=== PATIENT | male | born 1995 | race Caucasian/White ===

== ENCOUNTER 2018-03-02 10:46 | Emergency (ER) | payer OTHER ==
[2018-03-02 11:04] VITALS: BP 123/81; PULSE 86; RESP 18; TEMP 98.2
--- NOTE | 2018-03-02 11:35 | ED ---
General Adult HPI - General Chief complaint: Urogenital Stated complaint: male Time Seen by Provider: 03/02/18 11:00 Source: patient, RN notes reviewed Mode of arrival: ambulatory Limitations: no limitations - History of Present Illness Initial comments: This is a 22-year-old male who presents emergency department because he has a small lesion on his penis and states his been there for about 4 months. Patient states 4 months ago started as a pimple and then turn into an abscess and it has yet to go away. Patient states there has been no drainage is no fluctuants and does not feel like there is any mass there. Patient states he's just concerned because it has not completely healed. Patient denies any fever chills. Patient states she's been checked for STDs and these tests were negative. Patient states currently palpating the lesion does not hurt. Patient denies any testicular problems or pain. Patient denies any other lesions in any other spots. - Related Data Allergies Allergy/AdvReac Type Severity Reaction Status Date / Time animal dander Allergy Itching Verified 03/02/18 11:05 Review of Systems ROS Statement: Those systems with pertinent positive or pertinent negative responses have been documented in the HPI. ROS Other: All systems not noted in ROS Statement are negative. Past Medical History Past Medical History: Asthma History of Any Multi-Drug Resistant Organisms: MRSA Past Surgical History: No Surgical Hx Reported Past Psychological History: Anxiety, Depression Smoking Status: Current every day smoker Past Alcohol Use History: None Reported Past Drug Use History: Marijuana General Exam - General Exam Comments Initial Comments: GENERAL Patient is well-developed and well-nourished. Patient is in mild distress. EYES Patient's pupils are equal and round. Extraocular motion is intact SKIN Unremarkable NEURO The patient is alert and oriented 3 PYSCH Patient has normal interpersonal interactions. MUSCULOSKELETAL All 4 times and full range of motion. GENITALIA On the dorsal aspect of the penis there is a very small superficial lesion does not appear to be an ulceration doesn't appear to be fluctuant and there is no mass. The lesion is contained in the skin only but it is so small it is difficult to assess whether it is a healing abscess or whether it is new abrasion. Limitations: no limitations Course Vital Signs 03/02/18 11:01 Temperature 98.2 F Pulse Rate 86 Respiratory 18 Rate Blood Pressure 123/81 O2 Sat by Pulse 100 Oximetry Medical Decision Making - Medical Decision Making Patient states this lesion started as a pimple and then turn into an abscess and now this little red sandra is what has remained over the last 4 months and he is concerned because it is not healing. Disposition Clinical Impression: Penile lesion Disposition: HOME SELF-CARE Condition: Good Instructions: Sexually Transmitted Diseases (ED) Is patient prescribed a controlled substance at d/c from ED?: No Referrals: None,Stated [Primary Care Provider] - 1-2 days Yonny Cordero MD [STAFF PHYSICIAN] - 1-2 days
== END 2018-03-02 11:42 | disposition home or self-care (01) ==
LOC: EC 10:46
DX: N48.89 Other specified disorders of penis (principal); F17.200 Nicotine dependence, unspecified, uncomplicated; Z86.14 Personal history of Methicillin resistant Staphylococcus aureus infection; Z91.048 Other nonmedicinal substance allergy status
CPT/HCPCS: 99283

== ENCOUNTER 2018-05-04 18:20 | Emergency (ER) | payer OTHER ==
--- NOTE | 2018-05-04 18:30 | ED ---
General Adult HPI - General Chief complaint: Nausea/Vomiting/Diarrhea Stated complaint: vomiting Time Seen by Provider: 05/04/18 18:30 Source: patient Mode of arrival: ambulatory Limitations: no limitations - History of Present Illness Initial comments: 23-year-old male with past medical history of asthma presenting today for chief complaint of vomiting x1 day. Patient states that he has been throwing up all day, he cannot count the number of times he has had emesis. Denies hematemesis. Patient states that he walked to the bathroom to vomit, this afternoon he states he passed out, denies chest pain, shortness of breath or dizziness prior. Patient is unsure if he hit his head. Patient states following syncope he developed a dull aching headache. Denies this being the worse headache of his life. Patient admits to feeling warm and having chills this morning. He denies any diarrhea, melena, hematochezia, shorts of breath, dyspnea on exertion, palpitations, neck pain. Patient does admit to left upper quadrant discomfort, denies pain. Patient denies any other areas of abdominal discomfort or pain. Patient states that the vomiting has slowed, however he still remains nauseous. Patient denies any visual changes, diplopia, muscle weakness, paresthesias, sensation deficits, facial asymmetry incontinence,Or any other associated symptoms. Upon arrival patient's vital signs within acceptable limits. Patient is well-appearing there are no signs of acute distress. Remainder of ROS negative, patient denies any recent back pain, numbness or tingling, dysuria or hematuria, constipation, or any other complaints. Pt last BM 6 hours ago, normal. - Related Data Home Medications Medication Instructions Recorded Confirmed Multivitamins, Thera [Multivitamin 1 tab PO DAILY 05/04/18 05/04/18 (formulary)] Previous Rx's Medication Instructions Recorded Ondansetron [Zofran] 4 mg PO Q12HR PRN 3 Days #6 tab 05/04/18 Allergies Allergy/AdvReac Type Severity Reaction Status Date / Time animal dander Allergy Itching Verified 05/04/18 19:40 Review of Systems ROS Statement: Those systems with pertinent positive or pertinent negative responses have been documented in the HPI. ROS Other: All systems not noted in ROS Statement are negative. Constitutional: Reports: chills. Denies: fever, night sweats ENT: Denies: ear pain, throat pain Respiratory: Denies: cough, dyspnea, wheezes, hemoptysis, stridor Cardiovascular: Denies: chest pain, palpitations, dyspnea on exertion, orthopnea Endocrine: Denies: fatigue Gastrointestinal: Reports: abdominal pain (LUQ discomfort states not a pain), nausea, vomiting. Denies: diarrhea, constipation, hematemesis, melena, hematochezia Genitourinary: Denies: urgency, dysuria, frequency, hematuria, discharge Musculoskeletal: Denies: back pain Skin: Denies: rash, lesions Neurological: Reports: headache. Denies: weakness, numbness, paresthesias, confusion, abnormal gait, vertigo Past Medical History Past Medical History: Asthma History of Any Multi-Drug Resistant Organisms: MRSA Past Surgical History: No Surgical Hx Reported Past Psychological History: Anxiety, Depression Smoking Status: Current every day smoker Past Alcohol Use History: None Reported Past Drug Use History: Marijuana General Exam - General Exam Comments Initial Comments: General: The patient is awake and alert, in no distress, and does not appear acutely ill. Eye: Pupils are equal, round and reactive to light, extra-ocular movements are intact. No nystagmus. There is normal conjunctiva bilaterally. No signs of icterus. Ears, nose, mouth and throat: There are moist mucous membranes and no oral lesions. Neck: The neck is supple, there is no tenderness or JVD. Cardiovascular: There is a regular rate and rhythm. No murmur, rub or gallop is appreciated. Respiratory: Lungs are clear to auscultation, respirations are non-labored, breath sounds are equal. No wheezes, stridor, rales, or rhonchi. Gastrointestinal: No noted diaphoresis, jaundice, pallor, protecting postures or squirming. Symmetrical pigmentation of abdomen without signs of inflammation, scars, or striae. Umbilicus mildline, inverted without swelling. No dilated veins. Abdomen contour scaphoid, no noted abdominal distention. No visible masses. No peristalsis, aortic pulsations, or ventral hernia. Bowel sounds audible in all 4 quadrants, unremarkable. No friction rubs or venous hums. No epigastic, hepatic or abdominal bruits. No tenderness to light or deep palpation. Liver edge, not palpable. Spleen edge, right and left kidney not palpable. Superior bladder margin non-tender. Special Testing: Negative Fortuna, Rovsing, McBurney, Mariana, cutaneous hyperesthesia. Iliopsoas and obturator tests negative bilaterally. Negative Heel Jar test. No CVA tenderness. Digital rectal exam deferred. Negative france turners or cullens sign Musculoskeletal: Normal ROM, no tenderness. Strength 5/5. Sensation intact. Pulses equal bilaterally 2+. Neurological: A&O x 3. CN II-XII intact, There are no obvious motor or sensory deficits. Coordination appears grossly intact. Speech is normal. Skin: Skin is warm and dry and no rashes or lesions are noted. No LE edema Psychiatric: Cooperative, appropriate mood & affect, normal judgment. Limitations: no limitations Course Vital Signs 05/04/18 05/04/18 18:25 20:22 Temperature 97.4 F L 97.2 F L Pulse Rate 57 L 78 Respiratory 20 16 Rate Blood Pressure 110/71 113/60 O2 Sat by Pulse 98 96 Oximetry - Reevaluation(s) Reevaluation #1: patient denies nausea, abdominal exam remains benign. Patient tolerated by mouth intake. Pt appears well. 05/05/18 EKG Findings - EKG Comments: EKG Findings:: A 12-lead EKG was performed and shows the following: Rate is 52bpm, and rhythm is normal sinus. There are normal QRS complexes and normal R- wave progression. Non specific ST abnormalities, probably normal. ST segments have no elevation or depression, and ID segments appear normal. Medical Decision Making - Medical Decision Making Patient with complaint of vomiting, syncopal episode. Patient dry and exam. Patient given Zofran for nausea, this alleviated pt nausea. Abdominal exam benign. Last BM normal and today. Patient given 1 L bolus of IV fluid for rehydration. Given history of fall with unknown head injury CT brain and C- spine without contrast obtained, negative for acute process. EKG no acute findings. No focal neurological deficits on exam. Cardiac exam unremarkable. patient had no more episodes of vomiting, patient passed by mouth challenge he was eating Jell-O and requesting something to drink. Patient states he is ready for discharge. At this time feel patient's syncope most likely related to hypovolemia from vomiting. I discussed case with Dr. John who agreed with impression and plan. Pt discharged with primary care f/u in the next 1-2 days. Patient agreed with plan. Return parameters discussed at length patient who verbalized understanding. Patient discharged in stable condition - Lab Data Result diagrams: 05/04/18 18:42 05/04/18 18:42 Lab Results 05/04/18 05/04/18 Range/Units 18:42 18:42 WBC 10.0 (3.8-10.6) k/uL RBC 4.82 (4.30-5.90) m/uL Hgb 15.8 (13.0-17.5) gm/dL Hct 44.5 (39.0-53.0) % MCV 92.2 (80.0-100.0) fL MCH 32.8 (25.0-35.0) pg MCHC 35.6 (31.0-37.0) g/dL RDW 12.4 (11.5-15.5) % Plt Count 234 (150-450) k/uL Neutrophils % 84 % Lymphocytes % 10 % Monocytes % 4 % Eosinophils % 1 % Basophils % 0 % Neutrophils # 8.4 H (1.3-7.7) k/uL Lymphocytes # 1.0 (1.0-4.8) k/uL Monocytes # 0.4 (0-1.0) k/uL Eosinophils # 0.1 (0-0.7) k/uL Basophils # 0.0 (0-0.2) k/uL Sodium 143 (137-145) mmol/L Potassium 3.8 (3.5-5.1) mmol/L Chloride 108 H (98-107) mmol/L Carbon Dioxide 25 (22-30) mmol/L Anion Gap 10 mmol/L BUN 10 (9-20) mg/dL Creatinine 0.75 (0.66-1.25) mg/dL Est GFR (CKD-EPI)AfAm >90 (>60 ml/min/1.73 sqM) Est GFR (CKD-EPI)NonAf >90 (>60 ml/min/1.73 sqM) Glucose 95 (74-99) mg/dL Calcium 9.5 (8.4-10.2) mg/dL Total Bilirubin 0.4 (0.2-1.3) mg/dL AST 32 (17-59) U/L ALT 18 L (21-72) U/L Alkaline Phosphatase 62 (38-126) U/L Total Protein 7.0 (6.3-8.2) g/dL Albumin 4.4 (3.5-5.0) g/dL Lipase 151 (23-300) U/L Disposition Clinical Impression: Nausea & vomiting, Syncope Disposition: HOME SELF-CARE Condition: Good Instructions: Syncope (ED), Acute Nausea and Vomiting (ED) Additional Instructions: Please use medication as discussed. Please follow-up with family doctor in the next 2 days. Please return to emergency room if the symptoms increase or worsen or for any other concerns. Please increase fluid intake. Prescriptions: Ondansetron [Zofran] 4 mg PO Q12HR PRN 3 Days #6 tab PRN Reason: Nausea Is patient prescribed a controlled substance at d/c from ED?: No Referrals: Denzel Ely DO [Primary Care Provider] - 1-2 days Time of Disposition: 20:01
[2018-05-04] MEDS ORDERED: ONDANSETRON 4 MG/2 ML VIAL IVP STA (18:43)
[2018-05-04] MEDS ORDERED: SODIUM CHLORIDE 0.9% 1,000 ML IV STA (18:43)
[2018-05-04 19:14] LABS: Basophils % (A) 0 %; Eosinophils # (A) 0.1 k/uL (0-0.7); Eosinophils % (A) 1 %; HCT 44.5 % (39.0-53.0); HGB 15.8 gm/dL (13.0-17.5); Lymphocytes % (A) 10 %; MCH 32.8 pg (25.0-35.0); MCHC 35.6 g/dL (31.0-37.0); MCV 92.2 fL (80.0-100.0); Mean Platelet Volume 7.1; Monocytes # (A) 0.4 k/uL (0-1.0); Monocytes % (A) 4 %; Neutrophils # (A) 8.4 k/uL (1.3-7.7); Neutrophils % (A) 84 %; Platelet Count 234 k/uL (150-450); RBC 4.82 m/uL (4.30-5.90); RDW 12.4 % (11.5-15.5)
[2018-05-04 19:20] LABS: ALT 18 U/L (21-72); AST 32 U/L (17-59); Albumin 4.4 g/dL (3.5-5.0); Alkaline Phosphatase 62 U/L (38-126); Anion Gap 10 mmol/L; Blood Urea Nitrogen 10 mg/dL (9-20); Calcium 9.5 mg/dL (8.4-10.2); Carbon Dioxide 25 mmol/L (22-30); Chloride 108 mmol/L (98-107); Glucose 95 mg/dL (74-99); Lipase 151 U/L (23-300); Potassium 3.8 mmol/L (3.5-5.1); Sodium 143 mmol/L (137-145); Total Bilirubin 0.4 mg/dL (0.2-1.3)
--- NOTE | 2018-05-04 19:24 | CT ---
EXAMINATION TYPE: CT brain guerrero sethi con DATE OF EXAM: 05/04/2018 COMPARISON: None HISTORY: vomiting, passing out CT DLP: 1335.4 mGycm Automated exposure control for dose reduction was used. TECHNIQUE: CT scan of the head and cervical spine are performed without contrast. FINDINGS: Ventricles of normal size. There is no mass effect nor midline shift. There is no sign of intracranial hemorrhage. The calvarium is intact. Cervical vertebra have normal spacing and alignment. The posterior elements are intact. Facet joints appear normal. The skull base appears intact. IMPRESSION: Negative CT scan of the brain. Negative CT scan cervical spine.
--- NOTE | 2018-05-04 19:43 | XR ---
EXAMINATION TYPE: XR chest 2V DATE OF EXAM: 05/04/2018 COMPARISON: NONE HISTORY: Pain after falling TECHNIQUE: Frontal and lateral views of the chest are obtained. FINDINGS: Heart and mediastinum are normal. Lungs are clear. Diaphragm is normal. Bony thorax appear s normal. There is no sign of a pneumothorax. IMPRESSION: Normal chest
[2018-05-04 20:24] VITALS: BP 113/60; PULSE 78; RESP 16; TEMP 97.2
== END 2018-05-04 20:22 | disposition home or self-care (01) ==
LOC: EC 18:20
DX: R55 Syncope and collapse (principal); R11.2 Nausea with vomiting, unspecified; R19.7 Diarrhea, unspecified; R68.83 Chills (without fever); F17.200 Nicotine dependence, unspecified, uncomplicated; Z86.14 Personal history of Methicillin resistant Staphylococcus aureus infection; Z91.048 Other nonmedicinal substance allergy status; Z91.81 History of falling
CPT/HCPCS: 99284; 96374; 96361; 36415; 93005; 80053; 83690; 85025; 71046; 72125; 70450; J2405

== ENCOUNTER 2020-09-09 08:02 | Emergency (ER) | payer OTHER ==
[2020-09-09 08:08] VITALS: BP 123/78; PULSE 89; RESP 18; TEMP 98
--- NOTE | 2020-09-09 08:23 | ED ---
General Adult HPI - General Chief complaint: Urogenital Stated complaint: Male UG Time Seen by Provider: 09/09/20 08:08 Source: patient Mode of arrival: ambulatory Limitations: no limitations - History of Present Illness Initial comments: Dictation was produced using [email or web address] dictation software. please excuse any grammatical, word or spelling errors. This patient was cared for during a federal and state declared state of emergency secondary to Covid 19 Chief Complaint: 25-year-old male presents with 3 days of left testicular pain History of Present Illness: Patient is a 25-year-old male who presents today with left testicular pain. States that his symptoms began on Wednesday. He states that his left testicle hurts. He states that sometimes the pain radiates to his abdomen. Patient denies any dysuria or urinary symptoms. States he has not been sexually active for 6 months. Patient had some mild nausea. Denies any history of testicular issues in the past. States that his symptoms are intermittent and episodic. He still has some pain in his left testicle. Feels like his left testicle is swollen. The ROS documented in this emergency department record has been reviewed and confirmed by me. Those systems with pertinent positive or negative responses have been documented in the HPI. All other systems are other negative and/or noncontributory. PHYSICAL EXAM: General Impression: Alert and oriented x3, not in acute distress HEENT: Normocephalic atraumatic, extra-ocular movements intact, pupils equal and reactive to light bilaterally, mucous membranes moist. Cardiovascular: Heart regular rate and rhythm Chest: Able to complete full sentences, no retractions, no tachypnea Abdomen: abdomen soft, non-tender, non-distended, no organomegaly Musculoskeletal: Pulses present and equal in all extremities, no peripheral edema Motor: no focal deficits noted Neurological: CN II-XII grossly intact, no focal motor or sensory deficits noted Skin: Intact with no visualized rashes Psych: Normal affect and mood : Negative Prehn sign, there is a horizontal lie of the left testicle compared to the right. Slight tenderness to palpation over the posterior inferior pole of the left testicle ED course: 25-year-old male presents with left testicular pain for 3 days. As upon arrival are within acceptable limits. Ultrasound the scrotum shows small hydroceles noted of both testicles. Otherwise there is good flow to both testicles no evidence of testicular torsion, no signs of epididymitis. Urinalysis unremarkable. Urine sample was sent for STD testing. Patient given outpatient follow-up with urology Dr. Ha. Case was briefly discussed with Dr. Drew with no further recommendations. Patient told that it important that he return to the emergency department if he has any worsening symptoms. Told that he does appear to have horizontal lie of the left testicle which could predispose him to testicular torsion. Patient understandable and agreeable to plan. - Related Data Home Medications Medication Instructions Recorded Confirmed Multivitamins, Thera [Multivitamin 1 tab PO DAILY 05/04/18 09/09/20 (formulary)] Albuterol Sulfate [Ventolin HFA] 2 puff INHALATION RT-QID PRN 09/09/20 09/09/20 Beclomethasone Dipropionate [Qvar 1 puff INHALATION RT-BID 09/09/20 09/09/20 40 mcg Redihaler] Allergies Allergy/AdvReac Type Severity Reaction Status Date / Time animal dander Allergy Itching Verified 09/09/20 08:27 Review of Systems ROS Statement: Those systems with pertinent positive or pertinent negative responses have been documented in the HPI. ROS Other: All systems not noted in ROS Statement are negative. Past Medical History Past Medical History: Asthma History of Any Multi-Drug Resistant Organisms: MRSA Date of last positivie culture/infection: foot MDRO Source:: 2006 Past Surgical History: No Surgical Hx Reported Past Psychological History: Anxiety, Depression Smoking Status: Current every day smoker Past Alcohol Use History: None Reported Past Drug Use History: Marijuana General Exam Limitations: no limitations Course Vital Signs 09/09/20 08:04 Temperature 98 F Pulse Rate 89 Respiratory 18 Rate Blood Pressure 123/78 O2 Sat by Pulse 100 Oximetry Medical Decision Making - Lab Data Lab Results 09/09/20 Range/Units 09:00 Urine Color Yellow Urine Appearance Clear (Clear) Urine pH 6.0 (5.0-8.0) Ur Specific [place] 1.029 (1.001-1.035) Urine Protein Trace H (Negative) Urine Glucose (UA) Negative (Negative) Urine Ketones Negative (Negative) Urine Blood Negative (Negative) Urine Nitrite Negative (Negative) Urine Bilirubin Negative (Negative) Urine Urobilinogen 2.0 (<2.0) mg/dL Ur Leukocyte Esterase Negative (Negative) Disposition Clinical Impression: Testicular pain Disposition: HOME SELF-CARE Condition: Good Instructions (If sedation given, give patient instructions): Testicle Pain (ED) Additional Instructions: Seek medical attention immediately if he have recurrence of testicular pain. There is concern that you have a predisposition for testicular torsion Is patient prescribed a controlled substance at d/c from ED?: No Referrals: Silvio Dela Cruz MD [STAFF PHYSICIAN] - 1-2 days Time of Disposition: 10:35
--- NOTE | 2020-09-09 09:19 | US ---
EXAMINATION TYPE: US scrotum with doppler. Grayscale and color Doppler Duplex imaging performed of brittani win scrotum. DATE OF EXAM: 09/09/2020 COMPARISON: NONE CLINICAL HISTORY: left testicular pain. EXAM MEASUREMENTS: TESTICLES: Right Testicle: 4.3 x 2.3 x 3.4 cm Left Testicle: 4.3 x 2.3 x 3.2 cm EPIDIDYMIS HEAD: Right Epididymis: 1.1 x 0.8 cm Left Epididymis: 0.9 x 0.9 cm Doppler performed to assess for testicular vascularity; good bilateral color flow and waveforms are s een. There is no evidence of testicular torsion. No intra or extratesticular mass appreciated. Presence of hydroceles: small amount of fluid around both testicles. Presence of varicoceles: none appreciated, Valsalva maneuver was utilized with scrotal sac imaging , no movement seen with valsalva to indicate hernia. IMPRESSION: Small hydroceles noted. Otherwise unremarkable study.
[2020-09-09 09:34] LABS: Appearance,Urine Clear (Clear); Bilirubin,Urine Negative (Negative); Blood,Urine Negative (Negative); Color,Urine Yellow; Glucose,Urine (UA) Negative (Negative); Ketones,Urine Negative (Negative); Leukocyte Esterase,Urine Negative (Negative); Nitrite,Urine Negative (Negative); Protein,Urine Trace (Negative); Specific Gravity,Urine 1.029 (1.001-1.035)
[2020-09-10 13:06] LABS: C. trachomatis,PCR Negative (Neg,Equiv); Chlamydia trachomatis Source Urine; N. gonorrhoeae,PCR Negative (Neg,Equiv); Neisseria Source Urine
== END 2020-09-09 10:45 | disposition home or self-care (01) ==
LOC: EC 08:02
DX: N50.812 Left testicular pain (principal); N43.3 Hydrocele, unspecified; J45.909 Unspecified asthma, uncomplicated; F17.200 Nicotine dependence, unspecified, uncomplicated; Z79.51 Long term (current) use of inhaled steroids; Z91.048 Other nonmedicinal substance allergy status
CPT/HCPCS: 76870; 81003; 87491; 87591; 93975; 99284

== ENCOUNTER 2020-09-18 08:39 | Emergency (ER) | payer OTHER ==
[2020-09-18 08:43] VITALS: PULSE 78
[2020-09-18] MEDS ORDERED: ALBUTEROL NEBULIZED 2.5 MG/3 ML INHALATION STA (08:51)
[2020-09-18] MEDS ORDERED: methylPREDNISolone SOD SUCCI 125 MG/2 ML VIAL IV STA (08:51)
[2020-09-18 09:25] LABS: Basophils % (A) 1 %; Eosinophils # (A) 0.2 k/uL (0-0.7); Eosinophils % (A) 5 %; HCT 46.8 % (39.0-53.0); HGB 15.9 gm/dL (13.0-17.5); Lymphocytes # (A) 1.7 k/uL (1.0-4.8); Lymphocytes % (A) 39 %; MCH 31.1 pg (25.0-35.0); MCHC 33.9 g/dL (31.0-37.0); Mean Platelet Volume 7.4; Monocytes # (A) 0.4 k/uL (0-1.0); Monocytes % (A) 9 %; Neutrophils # (A) 1.9 k/uL (1.3-7.7); Neutrophils % (A) 44 %; Platelet Count 188 k/uL (150-450); RBC 5.09 m/uL (4.30-5.90); RDW 12.7 % (11.5-15.5); WBC 4.4 k/uL (3.8-10.6)
[2020-09-18 09:32] VITALS: RESP 16
--- NOTE | 2020-09-18 09:33 | XR ---
EXAMINATION TYPE: XR chest 2V DATE OF EXAM: 09/18/2020 COMPARISON: Chest x-ray 05/04/2018 HISTORY: Difficulty breathing, hemoptysis TECHNIQUE: Frontal and lateral views of the chest are obtained. FINDINGS: There is no focal air space opacity, pleural effusion, or pneumothorax seen. The cardiac silhouette size is within normal limits. Suspect bronchial wall thickening is present. The osseous s tructures are intact. IMPRESSION: Correlate for possible bronchitis, reactive airways disease
[2020-09-18 09:43] LABS: ALT 16 U/L (4-49); AST 27 U/L (17-59); African American GFR (CKD) >90 (>60 ml/min/1.73 sqM); Albumin 4.4 g/dL (3.5-5.0); Alkaline Phosphatase 65 U/L (38-126); Anion Gap 8 mmol/L; Blood Urea Nitrogen 14 mg/dL (9-20); Calcium 9.5 mg/dL (8.4-10.2); Carbon Dioxide 29 mmol/L (22-30); Chloride 104 mmol/L (98-107); Glucose 99 mg/dL (74-99); Non-African American GFR(CKD) >90 (>60 ml/min/1.73 sqM); Sodium 141 mmol/L (137-145); Total Bilirubin 0.4 mg/dL (0.2-1.3); Total Protein 7.1 g/dL (6.3-8.2)
[2020-09-18 09:45] LABS: D-Dimer 0.57 mg/L FEU (<0.60); INR 0.9 (<1.2); Partial Thromboplastin Time 24.8 sec (22.0-30.0); Prothrombin Time 9.8 sec (9.0-12.0)
[2020-09-18] MEDS ORDERED: ALBUTEROL HFA INHALER INHALATION STA (10:05)
--- NOTE | 2020-09-18 10:30 | CT ---
EXAMINATION TYPE: CT chest angio for PE DATE OF EXAM: 09/18/2020 COMPARISON: Chest x-ray earlier today. HISTORY: hemoptysis, cough, Covid CT DLP: 330.1 mGycm Automated exposure control for dose reduction was used. CONTRAST: CT Chest for pulmonary embolism performed with with IV Contrast, patient injected with 100 mL of Isov ue 370. FINDINGS: LUNGS: The lungs are grossly clear, there is no concerning parenchymal mass or nodule identified. N o suspicious focal ground glass opacity or consolidation. Mild linear scarring or atelectasis lateral right lung base coronal image 69. There is no pleural effusion or pneumothorax seen. The tracheobro nchial tree is patent. MEDIASTINUM: There is satisfactory enhancement of the pulmonary artery and its branches, there is no CT evidence for pulmonary embolism. There are no greater than 1 cm hilar or mediastinal lymph nodes. No cardiomegaly or pericardial effusion is seen. OTHER: No additional significant abnormality is seen. IMPRESSION: No CT evidence for acute pulmonary embolism. No suspicious acute pulmonary process.
--- NOTE | 2020-09-18 10:36 | ED ---
General Adult HPI - General Chief complaint: Shortness of Breath Stated complaint: SOB, Coughed up blood Time Seen by Provider: 09/18/20 08:50 Source: patient Mode of arrival: ambulatory Limitations: no limitations - History of Present Illness Initial comments: 25-year-old male presents emergency department today for chief complaint of coughing up blood. Patient states he's had a cough and some increased redness of breath the past 2 days. He states he coughed so hard today he notes he coughed up blood. Patient states he has occasional chest pains while coughing. He denies any sharp consistent pains leg swelling he denies any history of DVT pulmonary elbows him. He denies any recent surgeries or immobilization. Patient denies any history of active cancer. Patient is a jaw pain diaphoresis. He states he does have asthma, and he has uses a rescue inhaler.. Patient denies any fevers or concern for covid. Patient denies additional complaints. Upon arrival he appears - Related Data Home Medications Medication Instructions Recorded Confirmed Multivitamins, Thera [Multivitamin 1 tab PO DAILY 05/04/18 09/09/20 (formulary)] Albuterol Sulfate [Ventolin HFA] 2 puff INHALATION RT-QID PRN 09/09/20 09/09/20 Beclomethasone Dipropionate [Qvar 1 puff INHALATION RT-BID 09/09/20 09/09/20 40 mcg Redihaler] Allergies Allergy/AdvReac Type Severity Reaction Status Date / Time animal dander Allergy Itching Verified 09/09/20 08:27 mold Allergy Itching Verified 09/18/20 08:43 Review of Systems ROS Statement: Those systems with pertinent positive or pertinent negative responses have been documented in the HPI. ROS Other: All systems not noted in ROS Statement are negative. Past Medical History Past Medical History: Asthma History of Any Multi-Drug Resistant Organisms: MRSA Date of last positivie culture/infection: foot MDRO Source:: 2006 Past Surgical History: No Surgical Hx Reported Past Psychological History: Anxiety, Depression Smoking Status: Current every day smoker Past Alcohol Use History: None Reported Past Drug Use History: Marijuana General Exam - General Exam Comments Initial Comments: General: The patient is awake and alert, in no distress, and does not appear acutely ill. Eye: +3 mm pupils are equal, round and reactive to light, extra-ocular movements are intact. No nystagmus. There is normal conjunctiva bilaterally. No signs of icterus. Ears, nose, mouth and throat: There are moist mucous membranes and no oral lesions. Neck: The neck is supple, there is no tenderness or JVD. Cardiovascular: There is a regular rate and rhythm. No murmur, rub or gallop is appreciated. Respiratory: Lungs are clear to auscultation, respirations are non-labored, breath sounds are equal. No wheezes, stridor, rales, or rhonchi. Gastrointestinal: Soft, non-distended, non-tender abdomen without masses or organomegaly noted. There is no rebound or guarding present. Musculoskeletal: Normal ROM, no tenderness. Strength 5/5. Sensation intact. Radial and DP pulses equal bilaterally 2+. Neurological: A&O x 3. CN II-XII intact grossly, There are no obvious motor or sensory deficits. Coordination appears grossly intact. Speech is normal. Skin: Skin is warm and dry and no rashes or lesions are noted. no LE edema or calf pain. Psychiatric: Cooperative, appropriate mood & affect, normal judgment. Limitations: no limitations Course Vital Signs 09/18/20 09/18/20 09/18/20 08:41 09:31 10:52 Temperature 97.5 F L 98.3 F Pulse Rate 78 78 Respiratory 19 16 16 Rate Blood Pressure 132/85 126/63 O2 Sat by Pulse 100 98 Oximetry EKG Findings - EKG Comments: EKG Findings:: Ventricular rate 70 bpm, NV interval 162 ms, QRS duration 96 pulse seconds, QT/QTc is 360/397 ms. This is normal sinus there is no ST elev ation or depression appreciated. Medical Decision Making - Medical Decision Making EKG stable. Labs stable. dimer > 0.50. covid +. CTA (-) PE. patient has no pneumonia. lungs clear. decreased dyspnea with inhaler. patient appears well nontoxic and at this time stable for discharge with pcp f/u. return for worsening symptoms. - Lab Data Result diagrams: 09/18/20 09:09 09/18/20 09:09 Lab Results 09/18/20 09/18/20 09/18/20 Range/Units 09:09 09:09 09:09 WBC 4.4 (3.8-10.6) k/uL RBC 5.09 (4.30-5.90) m/uL Hgb 15.9 (13.0-17.5) gm/dL Hct 46.8 (39.0-53.0) % MCV 92.0 (80.0-100.0) fL MCH 31.1 (25.0-35.0) pg MCHC 33.9 (31.0-37.0) g/dL RDW 12.7 (11.5-15.5) % Plt Count 188 (150-450) k/uL MPV 7.4 Neutrophils % 44 % Lymphocytes % 39 % Monocytes % 9 % Eosinophils % 5 % Basophils % 1 % Neutrophils # 1.9 (1.3-7.7) k/uL Lymphocytes # 1.7 (1.0-4.8) k/uL Monocytes # 0.4 (0-1.0) k/uL Eosinophils # 0.2 (0-0.7) k/uL Basophils # 0.0 (0-0.2) k/uL PT 9.8 (9.0-12.0) sec INR 0.9 (<1.2) APTT 24.8 (22.0-30.0) sec D-Dimer 0.57 (<0.60) mg/L FEU Sodium 141 (137-145) mmol/L Potassium 4.0 (3.5-5.1) mmol/L Chloride 104 (98-107) mmol/L Carbon Dioxide 29 (22-30) mmol/L Anion Gap 8 mmol/L BUN 14 (9-20) mg/dL Creatinine 0.81 (0.66-1.25) mg/dL Est GFR (CKD-EPI)AfAm >90 (>60 ml/min/1.73 sqM) Est GFR (CKD-EPI)NonAf >90 (>60 ml/min/1.73 sqM) Glucose 99 (74-99) mg/dL Plasma Lactic Acid Rupesh (0.7-2.0) mmol/L Calcium 9.5 (8.4-10.2) mg/dL Total Bilirubin 0.4 (0.2-1.3) mg/dL AST 27 (17-59) U/L ALT 16 (4-49) U/L Alkaline Phosphatase 65 (38-126) U/L Troponin I (0.000-0.034) ng/mL NT-Pro-B Natriuret Pep pg/mL Total Protein 7.1 (6.3-8.2) g/dL Albumin 4.4 (3.5-5.0) g/dL Coronavirus (PCR) (Not Detectd) 09/18/20 09/18/20 09/18/20 Range/Units 09:09 09:09 09:09 WBC (3.8-10.6) k/uL RBC (4.30-5.90) m/uL Hgb (13.0-17.5) gm/dL Hct (39.0-53.0) % MCV (80.0-100.0) fL MCH (25.0-35.0) pg MCHC (31.0-37.0) g/dL RDW (11.5-15.5) % Plt Count (150-450) k/uL MPV Neutrophils % % Lymphocytes % % Monocytes % % Eosinophils % % Basophils % % Neutrophils # (1.3-7.7) k/uL Lymphocytes # (1.0-4.8) k/uL Monocytes # (0-1.0) k/uL Eosinophils # (0-0.7) k/uL Basophils # (0-0.2) k/uL PT (9.0-12.0) sec INR (<1.2) APTT (22.0-30.0) sec D-Dimer (<0.60) mg/L FEU Sodium (137-145) mmol/L Potassium (3.5-5.1) mmol/L Chloride (98-107) mmol/L Carbon Dioxide (22-30) mmol/L Anion Gap mmol/L BUN (9-20) mg/dL Creatinine (0.66-1.25) mg/dL Est GFR (CKD-EPI)AfAm (>60 ml/min/1.73 sqM) Est GFR (CKD-EPI)NonAf (>60 ml/min/1.73 sqM) Glucose (74-99) mg/dL Plasma Lactic Acid Rupesh 1.0 (0.7-2.0) mmol/L Calcium (8.4-10.2) mg/dL Total Bilirubin (0.2-1.3) mg/dL AST (17-59) U/L ALT (4-49) U/L Alkaline Phosphatase (38-126) U/L Troponin I <0.012 (0.000-0.034) ng/mL NT-Pro-B Natriuret Pep <11 pg/mL Total Protein (6.3-8.2) g/dL Albumin (3.5-5.0) g/dL Coronavirus (PCR) (Not Detectd) 09/18/20 Range/Units 09:09 WBC (3.8-10.6) k/uL RBC (4.30-5.90) m/uL Hgb (13.0-17.5) gm/dL Hct (39.0-53.0) % MCV (80.0-100.0) fL MCH (25.0-35.0) pg MCHC (31.0-37.0) g/dL RDW (11.5-15.5) % Plt Count (150-450) k/uL MPV Neutrophils % % Lymphocytes % % Monocytes % % Eosinophils % % Basophils % % Neutrophils # (1.3-7.7) k/uL Lymphocytes # (1.0-4.8) k/uL Monocytes # (0-1.0) k/uL Eosinophils # (0-0.7) k/uL Basophils # (0-0.2) k/uL PT (9.0-12.0) sec INR (<1.2) APTT (22.0-30.0) sec D-Dimer (<0.60) mg/L FEU Sodium (137-145) mmol/L Potassium (3.5-5.1) mmol/L Chloride (98-107) mmol/L Carbon Dioxide (22-30) mmol/L Anion Gap mmol/L BUN (9-20) mg/dL Creatinine (0.66-1.25) mg/dL Est GFR (CKD-EPI)AfAm (>60 ml/min/1.73 sqM) Est GFR (CKD-EPI)NonAf (>60 ml/min/1.73 sqM) Glucose (74-99) mg/dL Plasma Lactic Acid Rupesh (0.7-2.0) mmol/L Calcium (8.4-10.2) mg/dL Total Bilirubin (0.2-1.3) mg/dL AST (17-59) U/L ALT (4-49) U/L Alkaline Phosphatase (38-126) U/L Troponin I (0.000-0.034) ng/mL NT-Pro-B Natriuret Pep pg/mL Total Protein (6.3-8.2) g/dL Albumin (3.5-5.0) g/dL Coronavirus (PCR) Detected A (Not Detectd) Disposition Clinical Impression: Dyspnea, COVID-19, Hemoptysis, Cough Disposition: HOME SELF-CARE Condition: Good Instructions (If sedation given, give patient instructions): Coronavirus Disease 2019 (COVID-19) Additional Instructions: Please use medication as discussed. Please follow-up with family doctor in the next 2 days. Please return to emergency room if the symptoms increase or worsen or for any other concerns. Is patient prescribed a controlled substance at d/c from ED?: No Referrals: Denzel Ely DO [Primary Care Provider] - 1-2 days Time of Disposition: 10:36
[2020-09-18 10:53] VITALS: BP 126/63; TEMP 98.3
== END 2020-09-18 10:52 | disposition home or self-care (01) ==
LOC: EC 08:39
DX: U07.1 COVID-19 (principal); R04.2 Hemoptysis; J45.909 Unspecified asthma, uncomplicated; F17.200 Nicotine dependence, unspecified, uncomplicated; Z79.51 Long term (current) use of inhaled steroids; Z91.048 Other nonmedicinal substance allergy status; Z91.018 Allergy to other foods
CPT/HCPCS: 36415; 94640; 93005; 85379; 83880; 80053; 83605; 84484; 85025; 85610; 85730; 87635; 71046; 71275; 99285; 96374; J2930; Q9967

== ENCOUNTER 2022-08-18 09:32 | Day surgery (SDC) | payer BC, OTHER ==
[2022-08-13 15:16] VITALS: BMI 26.0
[~2022-08-18 09:32] MED LIST: LACTATED RINGERS 1,000 ML IV SCH; LIDOCAINE 1% (10MG/ML) FOR IV START INTRADERMA PRN
[2022-08-18 10:54] VITALS: RESP 18; TEMP 97.3
[2022-08-18] MEDS ORDERED: LIDOCAINE 2% INJ 20 MG/ML (2 ML VIAL) ONE (11:43)
[2022-08-18] MEDS ORDERED: PROPOFOL 10 MG/ML 20 ML VIAL IV ONE (11:43)
--- NOTE | 2022-08-18 12:01 | P.PCN ---
Date of Procedure: 08/18/22 Procedure(s) Performed: BRIEF HISTORY: Patient is a 27-year-old pleasant white male scheduled for an elective colonoscopy as a part of evaluation of right-sided abdominal pain, constipation and intermittent rectal bleeding for the last 6 weeks duration. PROCEDURE PERFORMED: Colonoscopy. PREOPERATIVE DIAGNOSIS: Right-sided abdominal pain and rectal bleeding. IV sedation per Anesthesia. PROCEDURE: After informed consent was obtained, the patient, was brought into the endoscopy unit. IV sedation was administered by Anesthesia under continuous monitoring. Digital rectal examination was normal. Initially the Olympus CF-160 flexible video colonoscope was then inserted in the rectum, gradually advanced into the cecum without any difficulty. Careful examination was performed as the scope was gradually being withdrawn. Ileocecal valve and the appendiceal orifice were visualized and appeared normal. Prep was excellent. Mucosa of the cecum, ascending colon, transverse colon, descending colon, sigmoid colon, and rectum appeared normal. Retroflexion was performed in the rectum and no lesions were seen. The patient tolerated the procedure well. IMPRESSION: Normal-appearing colon from rectum to cecum with no evidence of colorectal neoplasia . RECOMMENDATIONS: Findings of this examination were discussed with the patient as well as his family. He was advised to be a high-fiber diet and fiber supplements a regular basis.
[2022-08-18 12:22] VITALS: BP 111/66; PULSE 67
== END 2022-08-18 13:05 | disposition home or self-care (01) ==
LOC: ORWHC2ENDO 09:32
PROVIDERS: ATTEND Internal Medicine Gastroenterology
DX: K62.5 Hemorrhage of anus and rectum (principal); J45.909 Unspecified asthma, uncomplicated; F17.200 Nicotine dependence, unspecified, uncomplicated; F12.90 Cannabis use, unspecified, uncomplicated; Z79.899 Other long term (current) drug therapy
CPT/HCPCS: 45378; J2704; J2001

== ENCOUNTER → 2022-09-23 | Outpatient (CLI) | payer BC ==
--- NOTE | 2022-09-23 12:57 | CT ---
EXAMINATION TYPE: CT abdomen pelvis w con CT DLP: 1347 mGycm, Automated exposure control for dose reduction was used. DATE OF EXAM: 09/23/2022 12:40 PM COMPARISON: CTA chest 09/18/2020 CLINICAL INDICATION:Male, 27 years old with history of R10.84; right sided abdominal pain TECHNIQUE: Standard CT of the abdomen and pelvis following the administration of 100 cc of Isovue 3 00 IV contrast material and oral contrast. Coronal and sagittal reformats were performed. FINDINGS: LOWER CHEST: Unremarkable ABDOMEN LIVER: Unremarkable GALLBLADDER AND BILE DUCTS: Unremarkable. PANCREAS: Unremarkable. SPLEEN: Unremarkable. ADRENAL GLANDS: Unremarkable. KIDNEYS AND URETERS: No evidence of hydronephrosis or renal calculus. The ureters are unremarkable. PELVIS BLADDER: Unremarkable REPRODUCTIVE: Unremarkable. ABDOMEN & PELVIS STOMACH AND BOWEL: Stomach and duodenum are unremarkable. The appendix is within normal limits. No fo ned wall thickening or surrounding inflammatory changes of the bowel. Enteric contrast reaches the di stal small bowel. No evidence of bowel obstruction. PERITONEUM: No evidence of pneumoperitoneum or free fluid. VASCULATURE: No evidence of aortic aneurysm. MUSCULOSKELETAL: No acute osseous abnormalities. Multilevel Schmorl's nodes. LYMPH NODES: No gross evidence for lymphadenopathy. SOFT TISSUE/ABDOMINAL WALL: Unremarkable IMPRESSION: No acute abdominal/process. No CT abnormality correlating to patient's symptomology.
== END | disposition home or self-care (01) ==
LOC: RADCTMAIN 10:35
PROVIDERS: ATTEND Family Medicine
DX: R10.84 Generalized abdominal pain (principal)
CPT/HCPCS: 74177; Q9967